=== PATIENT | male | born 1965 | race Caucasian/White ===

== ENCOUNTER 2017-01-05 14:36 | Inpatient (IN) | payer MEDICARE ==
[~2017-01-05 14:36] MED LIST: 1-ME1LIQ PO; BUSP5TAB3 PO; CALC0.25 PO; CALC667T PO; CLON-352 PO; FLUT1INH INH; HYDR25TA35 PO; METO100T PO; NOVO7030P2 SQ; OMEP20TA PO; PRED5TAB PO; TACR1CAP PO; TAMS0.4C67 PO; VITA400C28 PO
[2017-01-05] MEDS ORDERED: SODIUM CHLOR 0.9% 1000 ML INJ 1,000 ML IV ONE (16:08)
[2017-01-05] MEDS ORDERED: SODIUM CHLOR 0.9% IV SCH (16:15)
[2017-01-05] MEDS ORDERED: ceFAZolin 2 GM PREMIX 50 ML IV SCH (16:15)
[2017-01-05] MEDS ORDERED: ANTITHYMOCYTE GLOB IV SCH (16:15)
[2017-01-05] MEDS ORDERED: ACETAMINOPHEN 1000 MG/100 ML VIAL IV SCH (16:15)
[2017-01-05] MEDS ORDERED: CUSTODIOL HTK IRR SOLN 2,000 ML IRRIGATION SCH (16:15)
[2017-01-05] MEDS ORDERED: MYCOPHENOLATE MOFETIL 500 MG TAB PO SCH (16:15)
[2017-01-05] MEDS ORDERED: diphenhydrAMINE HCL 50 MG/ML VIAL IV PUSH SCH (16:15)
[2017-01-05 17:43] LABS: AUTOMATED NEUTROPHIL # 8.9 TH/MM3 (1.8-7.7); BASOPHIL # 0.1 TH/MM3 (0-0.2); BASOPHIL % 1.1 % (0.0-2.0); EOSINOPHIL # 0.2 TH/MM3 (0-0.4); EOSINOPHIL % 1.8 % (0.0-4.0); HEMATOCRIT 30.6 % (39.0-51.0); HEMO FLAGS DIFF FINAL; LYMPH % 8.5 % (9.0-44.0); LYMPHOCYTE # 0.9 TH/MM3 (1.0-4.8); MEAN CELL VOLUME 98.3 FL (80.0-100.0); MEAN CORPUSCULAR HEMOGLOBIN 33.5 PG (27.0-34.0); MONO % 8.9 % (0.0-8.0); NEUT % 79.7 % (16.0-70.0); PLATELET COUNT 148 TH/MM3 (150-450); RED BLOOD COUNT 3.11 MIL/MM3 (4.50-5.90); RED CELL DISTRIBUTION WIDTH 13.5 % (11.6-17.2); WHITE BLOOD COUNT 11.1 TH/MM3 (4.0-11.0)
[2017-01-05 17:55] VITALS: PULSE 83
[2017-01-05 17:57] LABS: APTT (PATIENT) 32.4 SEC (24.3-30.1); PROTHROMBIN TIME - PATIENT 10.7 SEC (9.8-11.6)
[2017-01-05 18:03] LABS: ANION GAP 11 MEQ/L (5-15); AST (GOT) 6 U/L (15-37); BICARBONATE 20.6 MEQ/L (21.0-32.0); BLOOD UREA NITROGEN 46 MG/DL (7-18); CHLORIDE 103 MEQ/L (98-107); GLOMERULAR FILTRATION RATE 7 ML/MIN (>89); POTASSIUM 4.5 MEQ/L (3.5-5.1); SODIUM (NA) 135 MEQ/L (136-145)
[2017-01-05 18:06] LABS: ALKALINE PHOSPHATASE 73 U/L (45-117); ALT (GPT) 9 U/L (12-78); TOTAL BILIRUBIN ADULT 0.7 MG/DL (0.2-1.0)
--- NOTE | 2017-01-06 07:29 | MH ---
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 HISTORY The patient is a 51-year-old male who is here today for possible kidney transplantation. He is status post a donor kidney transplant in 2001 and he lost his graft and resumed dialysis in 2012. His original renal disease was secondary to Goodpasture's disease. He is currently on hemodialysis. His last hemodialysis session was on this past Monday. He denies any recent fevers, chills, nausea, vomiting or diarrhea. He has had no exposure to anyone ill. He has not had any recent travel outside of the city and he reports no ill feelings or any open wounds or cough. Most notably, he has stopped smoking over the last year. He is here today. He understands fully what the expected course for his transplant as he has had previous one. PAST MEDICAL HISTORY He has: 1. Coronary artery disease 2. Myocardial infarction 3. Type 2 diabetes mellitus 4. Hypertension 5. GERD 6. End-stage renal disease 7. A history of multiple blood transfusions. PAST SURGICAL HISTORY 1. Kidney transplant which was placed on the right side. 2. He has a right upper extremity AV fistula which clotted. 3. He has left upper extremity AV fistula which is currently functional SOCIAL HISTORY As mentioned, he has quit smoking. MEDICATIONS He states that was on: 1. Flomax 2. Omeprazole 3. Antihypertensive medications 4. He takes insulin. ALLERGIES He has no known drug allergies. REVIEW OF SYSTEMS On review of systems is essentially negative for head and neck. CARDIAC: Denies any chest pains or palpitations. PULMONARY: Denies any asthma, bronchitis or shortness of breath or cough. GI: Denies any abdominal pain. RENAL: As described above. MUSCULOSKELETAL: Denies any current pain. SKIN: Denies any rashes. PHYSICAL EXAM On physical exam, his blood pressure is 171/89, his heart rate 83, respiratory rate 17, temperature is 97.9. HEAD AND NECK: Shows him to be anicteric with moist mucosal membranes. His oral hygiene is good. He has no cervical or supraclavicular adenopathy. He has no thyromegaly. LUNGS: His lungs are clear to auscultation with good breath sounds bilaterally. No rales, rhonchi or wheezing. CARDIAC: Exam shows him to have a regular rate and rhythm, S1 and S2 with a systolic murmur. ABDOMEN: His abdomen is soft, nontender and nondistended. His right lower quadrant scar is well-healed. He has no abdominal masses or hernias. EXTREMITIES: Show no clubbing, cyanosis or edema. PULSES: He has 2+ pulses in his femorals, radials, as well as dorsalis pedis. SKIN: He has no rashes. ASSESSMENT/PLAN Mr. Heart is here for his donor renal transplant. We discussed the indications, risks and benefits, as well as the pre, linda and postop events surrounding kidney transplantation, and he is well familiar with the process from his first kidney transplant. 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 This was discussed in depth with he and his significant other in terms of the likelihood of metastases as well as donor transmission of malignancy. They understand the risk and are willing to proceed with the transplant. We will prep him for the OR and are awaiting cross-match results. Because of his last time on dialysis, he may require dialysis prior to transplantation. A consent form also be provided. MD BRANDI Duran/MARILIA /4:33 PM /7:09 AM
--- NOTE | 2017-01-06 21:47 | EKG ---
Date Performed: 01/05/2017 Time Performed: 16:57:28 PTAGE: 51 years EKG: Sinus rhythm Extensive ST-T changes are nonspecific Consider anterolateral ischemia. Borderline ECG PREVIOUS TRACING : 12/10/2013 [id number] DOCTOR: Tim Shahid Interpretating Date/Time 01/06/2017 21:45:34
== END 2017-01-05 18:39 | disposition home or self-care (01) | DRG 682 ==
LOC: HCVR 14:36 → OBSVTOIN 16:13
PROVIDERS: ADMIT Surgery; ATTEND Surgery
DX: I12.0 Hypertensive chronic kidney disease with stage 5 chronic kidney disease or end stage renal disease (principal); Z53.20 Procedure and treatment not carried out because of patient's decision for unspecified reasons; N18.6 End stage renal disease; M31.0 Hypersensitivity angiitis; Z94.0 Kidney transplant status; Z99.2 Dependence on renal dialysis; I25.10 Atherosclerotic heart disease of native coronary artery without angina pectoris; I25.2 Old myocardial infarction; Z87.891 Personal history of nicotine dependence; K21.9 Gastro-esophageal reflux disease without esophagitis; E11.22 Type 2 diabetes mellitus with diabetic chronic kidney disease
CPT/HCPCS: 80053; 85025; 85610; 85730; 86850; 86900; 86901; 86920; 93005; 94150; J7030